=== PATIENT | female | born 1935 | race Caucasian/White ===

== ENCOUNTER 2023-11-17 14:16 | Inpatient (IN) | payer MEDICARE, OTHER ==
[~2023-11-17] VITALS: Ht 154.9 cm; Wt 68.5 kg
[2023-11-17] MEDS ORDERED: IV NORMAL SALINE 500 ML BAG IV ONE (14:30)
[2023-11-17] MEDS ORDERED: ELIQUIS (14:42)
[2023-11-17] MEDS ORDERED: TOPROL (14:42)
[2023-11-17] MEDS ORDERED: AMIODARONE (14:42)
[2023-11-17] MEDS ORDERED: PANTOPRAZOLE (14:42)
[2023-11-17] MEDS ORDERED: FUROSEMIDE (14:42)
[2023-11-17] MEDS ORDERED: ISOSORBIDE (14:42)
[2023-11-17] MEDS ORDERED: ATORVASTATIN (14:42)
[2023-11-17] MEDS ORDERED: FUROSEMIDE 40 MG/4 ML VIAL ONE (14:59)
[2023-11-17] MEDS ORDERED: FUROSEMIDE 40 MG/4 ML VIAL IV ONE (15:00)
[2023-11-17 15:44] LABS: BASOPHILS # (AUTO) 0.1 K/UL (0.0-0.2); BASOPHILS % (AUTO) 0.9 % (0.0-2.0); EOSINOPHILS % (AUTO) 0.6 % (0.0-7.0); HEMATOCRIT 35.4 % (31.2-41.9); HEMOGLOBIN 11.2 g/dL (10.9-14.3); LYMPHOCYTES # (AUTO) 0.6 K/uL (0.8-4.8); LYMPHOCYTES % (AUTO) 8.7 % (20.5-51.5); MEAN CORPUSCULAR HEMOGLOBIN 24.9 uug (24.7-32.8); MEAN CORPUSCULAR HGB CONC 32 g/dL (32.3-35.6); MEAN CORPUSCULAR VOLUME 78.5 fL (75.5-95.3); MONOCYTES # (AUTO) 0.7 K/uL (0.1-1.30); MONOCYTES % (AUTO) 10.3 % (0.0-11.0); NEUTROPHILS # (AUTO) 5.5 K/uL (1.8-8.9); NEUTROPHILS % (AUTO) 79.5 % (38.5-71.5); PLATELET COUNT (AUTO) 231 K/uL (179-408); RED BLOOD CELL COUNT(AUTO) 4.51 MIL/uL (3.63-4.92); RED CELL DISTRIBUTION WIDTH 19.8 % (12.3-17.7)
[2023-11-17 15:46] LABS: CALCIUM 8.2 mg/dL (8.5-10.1); CARBON DIOXIDE 33 mmol/L (21-32); CHLORIDE 99 mmol/L (98-107); CREATININE 0.8 mg/dL (0.6-1.3); GLUCOSE 131 mg/dL (74-106); POTASSIUM 3.3 mmol/L (3.5-5.1); SODIUM SERUM 139 mmol/L (136-145); UREA NITROGEN, BLOOD 14 mg/dL (7-18)
[2023-11-17 15:48] LABS: DIFFERENTIAL COMMENT 1
[2023-11-17] MEDS ORDERED: POTASSIUM BICARBONATE/CIT AC 25 MEQ TABLET.EFF ONE (15:55)
[2023-11-17 15:59] LABS: ALANINE AMINOTRANSFERASE 69 U/L (14-59); ALBUMIN 3.2 g/dL (3.4-5.0); ALKALINE PHOSPHATASE 77 U/L (50-136); ASPARTATE AMINOTRANSFERASE 38 U/L (15-37); BILIRUBIN,DIRECT 0.3 mg/dL (0.0-0.2); BILIRUBIN,TOTAL 0.8 mg/dL (0.2-1.0); NT-PRO BNP 3061 pg/mL (0-125); TOTAL PROTEIN, SERUM 6.7 g/dL (6.4-8.2)
[2023-11-17] MEDS ORDERED: POTASSIUM BICARBONATE/CIT AC 25 MEQ TABLET.EFF PO ONE (16:00)
[2023-11-17 20:00] VITALS: BP 122/64; TEMP 97.4; O2SAT 95
[2023-11-17 20:55] VITALS: BP 122/64; TEMP 97.4; O2SAT 95
[2023-11-17] MEDS ORDERED: MAGNESIUM HYDROXIDE 30 ML LIQUID UDC PO PRN (22:00)
[2023-11-17] MEDS ORDERED: ACETAMINOPHEN 325 MG TABLET PO PRN (22:00)
[2023-11-17] MEDS ORDERED: ONDANSETRON 4 MG/2 ML VIAL IV PRN (22:00)
[2023-11-17] MEDS ORDERED: REMEDY ESSENTIAL ZINC PASTE 113 GM TP PRN (22:00)
[2023-11-18] VITALS: BP 105/61; TEMP 97.7; O2SAT 96
[2023-11-18 04:00] VITALS: BP 108/60; TEMP 97.9; O2SAT 95
[2023-11-18 07:34] LABS: BASOPHILS % (AUTO) 0.4 % (0.0-2.0); EOSINOPHILS # (AUTO) 0.1 K/uL (0.0-0.7); EOSINOPHILS % (AUTO) 0.7 % (0.0-7.0); HEMATOCRIT 34.5 % (31.2-41.9); HEMOGLOBIN 11.3 g/dL (10.9-14.3); LYMPHOCYTES # (AUTO) 0.5 K/uL (0.8-4.8); LYMPHOCYTES % (AUTO) 5.6 % (20.5-51.5); MEAN CORPUSCULAR HEMOGLOBIN 25.4 uug (24.7-32.8); MEAN CORPUSCULAR HGB CONC 33 g/dL (32.3-35.6); MEAN CORPUSCULAR VOLUME 77.9 fL (75.5-95.3); MONOCYTES # (AUTO) 1.1 K/uL (0.1-1.30); MONOCYTES % (AUTO) 11.7 % (0.0-11.0); NEUTROPHILS # (AUTO) 7.5 K/uL (1.8-8.9); NEUTROPHILS % (AUTO) 81.6 % (38.5-71.5); PLATELET COUNT (AUTO) 272 K/uL (179-408); RED BLOOD CELL COUNT(AUTO) 4.43 MIL/uL (3.63-4.92); RED CELL DISTRIBUTION WIDTH 20.2 % (12.3-17.7); WHITE BLOOD COUNT (AUTO) 9.2 K/uL (3.8-11.8)
[2023-11-18 07:43] LABS: DIFFERENTIAL COMMENT 1
[2023-11-18 07:46] LABS: CALCIUM 8.8 mg/dL (8.5-10.1); CARBON DIOXIDE 36 mmol/L (21-32); CHLORIDE 101 mmol/L (98-107); CREATININE 0.6 mg/dL (0.6-1.3); GLUCOSE 91 mg/dL (74-106); MAGNESIUM 2.2 mg/dL (1.8-2.4); PHOSPHOROUS 4.9 mg/dL (2.5-4.9); POTASSIUM 3.9 mmol/L (3.5-5.1); SODIUM SERUM 140 mmol/L (136-145); UREA NITROGEN, BLOOD 14 mg/dL (7-18)
[2023-11-18] MEDS: FUROSEMIDE 40 MG/4 ML VIAL IV SCH ×2 (08:47→20:34)
[2023-11-18 10:27] VITALS: BP 117/67; TEMP 98.1; O2SAT 94
[2023-11-18 11:35] VITALS: BP 118/63; TEMP 97.8; O2SAT 97
[2023-11-18] MEDS ORDERED: MONT10TA33 PO (11:38)
[2023-11-18] MEDS ORDERED: FLUT1BLS6 IH (11:38)
[2023-11-18] MEDS ORDERED: METO25TA6 PO (11:38)
[2023-11-18] MEDS ORDERED: PANT40TA49 PO (11:38)
[2023-11-18] MEDS ORDERED: ISOS60TA72 PO (11:38)
[2023-11-18] MEDS ORDERED: LATA2.5D15 EACHEYE (11:38)
[2023-11-18] MEDS ORDERED: DAPA10TA PO (11:38)
[2023-11-18] MEDS ORDERED: ERGO50CA PO (11:38)
[2023-11-18] MEDS ORDERED: ATOR40TA PO (11:38)
[2023-11-18] MEDS ORDERED: FURO40TA5 PO (11:38)
[2023-11-18] MEDS ORDERED: AMIO200T5 PO (11:38)
[2023-11-18] MEDS ORDERED: BRIM5DRO2 EACHEYE (11:38)
[2023-11-18] MEDS ORDERED: APIX5TAB PO (11:38)
[2023-11-18] MEDS ORDERED: ESCI-9 PO (11:38)
[2023-11-18] MEDS ORDERED: ESCI20TA44 PO (11:40)
[2023-11-18 16:34] VITALS: BP 131/69; TEMP 98.4; O2SAT 98
[2023-11-19] MEDS: FUROSEMIDE 40 MG/4 ML VIAL IV SCH ×2 (08:58→21:13)
[2023-11-19 11:44] VITALS: BP 105/59; TEMP 98.3; O2SAT 94
[2023-11-19 16:00] VITALS: BP 110/66; TEMP 98.7; O2SAT 92
[2023-11-19 20:00] VITALS: BP 117/73; TEMP 99.1; O2SAT 91
[2023-11-20] VITALS: BP 138/69; TEMP 99
[2023-11-20 04:00] VITALS: BP 124/70; TEMP 98.2
[2023-11-20 07:13] LABS: CALCIUM 8.8 mg/dL (8.5-10.1); CARBON DIOXIDE 29 mmol/L (21-32); CHLORIDE 96 mmol/L (98-107); CREATININE 0.5 mg/dL (0.6-1.3); GLUCOSE 84 mg/dL (74-106); POTASSIUM 3.6 mmol/L (3.5-5.1); SODIUM SERUM 133 mmol/L (136-145); UREA NITROGEN, BLOOD 16 mg/dL (7-18)
[2023-11-20 08:26] LABS: BASOPHILS % (AUTO) 0.4 % (0.0-2.0); DIFFERENTIAL COMMENT 0; EOSINOPHILS % (AUTO) 0.3 % (0.0-7.0); HEMOGLOBIN 12.8 g/dL (10.9-14.3); LYMPHOCYTES # (AUTO) 0.4 K/uL (0.8-4.8); LYMPHOCYTES % (AUTO) 3.7 % (20.5-51.5); MEAN CORPUSCULAR HGB CONC 32 g/dL (32.3-35.6); MEAN CORPUSCULAR VOLUME 78.2 fL (75.5-95.3); MONOCYTES # (AUTO) 1.4 K/uL (0.1-1.30); MONOCYTES % (AUTO) 11.5 % (0.0-11.0); NEUTROPHILS % (AUTO) 84.1 % (38.5-71.5); PLATELET COUNT (AUTO) 267 K/uL (179-408); RED BLOOD CELL COUNT(AUTO) 5.12 MIL/uL (3.63-4.92); RED CELL DISTRIBUTION WIDTH 20.2 % (12.3-17.7)
[2023-11-20] MEDS: FUROSEMIDE 40 MG/4 ML VIAL IV SCH ×2 (09:14→22:16)
[2023-11-20 11:24] VITALS: BP 132/81; TEMP 98; O2SAT 93
[2023-11-20 15:23] VITALS: BP 135/68; TEMP 98.2; O2SAT 91
[2023-11-20] MEDS ORDERED: AMIODARONE HCL IV 150 MG in IV DEXTROSE 5% 100 ML IV ONE (21:45)
[2023-11-20] MEDS ORDERED: AMIODARONE HCL 150 MG/3 ML VIAL IV ONE (22:34)
[2023-11-20] MEDS: AMIODARONE HCL IV 450 MG in IV DEXTROSE 5% 250 ML IV PRN (23:42)
[2023-11-21 00:25] VITALS: BP 112/72; TEMP 98.6; O2SAT 94
[2023-11-21 04:10] VITALS: BP 130/78; TEMP 98.4; O2SAT 92
[2023-11-21] MEDS ORDERED: AMIODARONE HCL 150 MG/3 ML VIAL IV ONE (04:58)
[2023-11-21] MEDS: AMIODARONE HCL IV 450 MG in IV DEXTROSE 5% 250 ML IV PRN (05:49)
[2023-11-21 07:03] LABS: BASOPHILS % (AUTO) 0.3 % (0.0-2.0); EOSINOPHILS % (AUTO) 0.1 % (0.0-7.0); HEMATOCRIT 41.7 % (31.2-41.9); HEMOGLOBIN 13.4 g/dL (10.9-14.3); LYMPHOCYTES # (AUTO) 0.6 K/uL (0.8-4.8); LYMPHOCYTES % (AUTO) 4.8 % (20.5-51.5); MEAN CORPUSCULAR HEMOGLOBIN 24.9 uug (24.7-32.8); MEAN CORPUSCULAR HGB CONC 32 g/dL (32.3-35.6); MEAN CORPUSCULAR VOLUME 77.5 fL (75.5-95.3); MONOCYTES # (AUTO) 1.6 K/uL (0.1-1.30); MONOCYTES % (AUTO) 13.3 % (0.0-11.0); NEUTROPHILS # (AUTO) 10.1 K/uL (1.8-8.9); NEUTROPHILS % (AUTO) 81.5 % (38.5-71.5); PLATELET COUNT (AUTO) 268 K/uL (179-408); RED BLOOD CELL COUNT(AUTO) 5.37 MIL/uL (3.63-4.92); RED CELL DISTRIBUTION WIDTH 20.4 % (12.3-17.7); WHITE BLOOD COUNT (AUTO) 12.3 K/uL (3.8-11.8)
[2023-11-21 07:21] LABS: DIFFERENTIAL COMMENT 1
[2023-11-21 07:24] LABS: CALCIUM 8.6 mg/dL (8.5-10.1); CARBON DIOXIDE 38 mmol/L (21-32); CHLORIDE 93 mmol/L (98-107); CREATININE 0.5 mg/dL (0.6-1.3); GLUCOSE 105 mg/dL (74-106); SODIUM SERUM 135 mmol/L (136-145); UREA NITROGEN, BLOOD 14 mg/dL (7-18)
[2023-11-21] MEDS ORDERED: METOPROLOL TARTRATE 25 MG TABLET PO PRN (07:30)
[2023-11-21 07:53] VITALS: BP 136/92; TEMP 98.4; O2SAT 96
[2023-11-21 07:54] LABS: POTASSIUM 2.8 mmol/L (3.5-5.1)
[2023-11-21] MEDS ORDERED: POTASSIUM CHLORIDE 20 MEQ POWDER PACKET GT ONE (08:30)
[2023-11-21] MEDS: POTASSIUM CHLORIDE 50 ML IV SCH ×4 (08:52→11:50)
[2023-11-21] MEDS: FUROSEMIDE 40 MG/4 ML VIAL IV SCH (08:52)
[2023-11-21] MEDS: ESCITALOPRAM OXALATE 10 MG TABLET PO SCH (08:53)
[2023-11-21] MEDS: METOPROLOL TARTRATE 25 MG TABLET PO SCH ×2 (08:53→21:17)
[2023-11-21] MEDS: MONTELUKAST SODIUM 10 MG TABLET PO SCH (08:53)
[2023-11-21] MEDS: APIXABAN 5 MG TABLET PO SCH ×2 (08:56→16:50)
[2023-11-21] MEDS: PANTOPRAZOLE SODIUM 40 MG TABLET.DR PO SCH (08:58)
[2023-11-21] MEDS ORDERED: ISOSORBIDE MONONITRATE 60 MG TAB.SR.24H PO SCH (09:00)
[2023-11-21] MEDS ORDERED: Medication Not On Formulary EA (Escitalopram Oxalate 1 TAB) PO SCH (09:00)
[2023-11-21] MEDS ORDERED: AMIODARONE HCL 200 MG TABLET PO SCH (09:00)
[2023-11-21 11:33] VITALS: BP 121/69; TEMP 98.3; O2SAT 96
[2023-11-21 15:55] VITALS: BP 141/75; TEMP 99; O2SAT 92
[2023-11-21] MEDS ORDERED: LORAZEPAM 2 MG/1 ML VIAL IV PRN (16:30)
[2023-11-21] MEDS: LORAZEPAM 0.5 MG TABLET PO PRN ×3 (16:50→22:55)
[2023-11-21 19:00] VITALS: BP 122/77; TEMP 98.3; O2SAT 95
[2023-11-22 05:44] VITALS: BP 143/86; TEMP 98.8; O2SAT 90
[2023-11-22] MEDS: PANTOPRAZOLE SODIUM 40 MG TABLET.DR PO SCH (06:23)
[2023-11-22] MEDS: APIXABAN 5 MG TABLET PO SCH ×2 (08:57→17:59)
[2023-11-22] MEDS: ESCITALOPRAM OXALATE 10 MG TABLET PO SCH (09:00)
[2023-11-22] MEDS: MONTELUKAST SODIUM 10 MG TABLET PO SCH (09:00)
[2023-11-22] MEDS: METOPROLOL TARTRATE 25 MG TABLET PO SCH ×2 (09:03→21:01)
[2023-11-22 11:59] VITALS: BP 125/70; TEMP 98.3; O2SAT 94
[2023-11-22 15:06] VITALS: BP 132/79; TEMP 98.2; O2SAT 92
[2023-11-22] MEDS: PROTEIN SUPPLEMENT (PROSTAT) 30 ML LIQUID PO SCH (17:00)
[2023-11-22 17:30] LABS: BASOPHILS % (AUTO) 0.3 % (0.0-2.0); DIFFERENTIAL COMMENT 0; EOSINOPHILS # (AUTO) 0.1 K/uL (0.0-0.7); EOSINOPHILS % (AUTO) 0.5 % (0.0-7.0); HEMATOCRIT 41.5 % (31.2-41.9); HEMOGLOBIN 13.3 g/dL (10.9-14.3); LYMPHOCYTES # (AUTO) 0.5 K/uL (0.8-4.8); MEAN CORPUSCULAR HEMOGLOBIN 25.1 uug (24.7-32.8); MEAN CORPUSCULAR HGB CONC 32 g/dL (32.3-35.6); MEAN CORPUSCULAR VOLUME 78.3 fL (75.5-95.3); MONOCYTES # (AUTO) 1.2 K/uL (0.1-1.30); MONOCYTES % (AUTO) 11.2 % (0.0-11.0); NEUTROPHILS # (AUTO) 8.8 K/uL (1.8-8.9); PLATELET COUNT (AUTO) 258 K/uL (179-408); RED CELL DISTRIBUTION WIDTH 19.5 % (12.3-17.7); WHITE BLOOD COUNT (AUTO) 10.6 K/uL (3.8-11.8)
[2023-11-22 17:32] LABS: CALCIUM 8.9 mg/dL (8.5-10.1); CARBON DIOXIDE 32 mmol/L (21-32); CHLORIDE 95 mmol/L (98-107); CREATININE 0.5 mg/dL (0.6-1.3); GLUCOSE 94 mg/dL (74-106); POTASSIUM 3.5 mmol/L (3.5-5.1); SODIUM SERUM 133 mmol/L (136-145); UREA NITROGEN, BLOOD 19 mg/dL (7-18)
[2023-11-22 17:38] LABS: ALANINE AMINOTRANSFERASE 37 U/L (14-59); ALBUMIN 2.5 g/dL (3.4-5.0); ALKALINE PHOSPHATASE 70 U/L (50-136); ASPARTATE AMINOTRANSFERASE 30 U/L (15-37); BILIRUBIN,TOTAL 1.7 mg/dL (0.2-1.0); MAGNESIUM 2.1 mg/dL (1.8-2.4); PHOSPHOROUS 3.4 mg/dL (2.5-4.9)
[2023-11-22 17:51] LABS: ABG BASE EXCESS 10.2 mmol/L (-2.0-2.0); ABG PCO2 52.2 mmHg (35.0-48.0); ABG PH 7.456 (7.340-7.440); ABG PO2 66.4 mmHg (75.0-100.0); ABG SITE RIGHT RADIAL; ABG TOTAL HEMOGLOBIN 14.1 G/dL (12.0-16.0); AaDO2 93.7 mmHg; COHb 1.8 % (0.0-3.9); MetHb 0.3 % (0.0-1.5); O2Hb 90.9 % (94.0-97.0)
[2023-11-22] MEDS ORDERED: FUROSEMIDE 40 MG/4 ML VIAL IV ONE (19:00)
[2023-11-22 19:22] LABS: *BLOOD, URINE 1+ (NEGATIVE); *CLARITY,URINE CLEAR (CLEAR); *COLOR,URINE YELLOW (YELLOW); *KETONES,URINE 1+ (NEGATIVE); *PROTEIN,URINE 2+ (NEGATIVE); LEUKOCYTE ESTERASE ,URINE NEGATIVE (NEGATIVE); NITRITE, URINE NEGATIVE (NEGATIVE); PH,URINE 5.5 (5.0-8.0); UGLUCOSE TRACE (NEGATIVE)
[2023-11-22 19:23] LABS: *BILIRUBIN,URIN 1+ (NEGATIVE); WBC,URINE 0-3 /HPF (0-3)
[2023-11-22 20:00] VITALS: BP 141/76; TEMP 98.1; O2SAT 100
[2023-11-23 04:00] VITALS: BP 114/73; TEMP 97.4; O2SAT 93
[2023-11-23] MEDS: PANTOPRAZOLE SODIUM 40 MG TABLET.DR PO SCH (06:33)
[2023-11-23] MEDS: MONTELUKAST SODIUM 10 MG TABLET PO SCH (09:20)
[2023-11-23] MEDS: METOPROLOL TARTRATE 25 MG TABLET PO SCH ×2 (09:20→20:47)
[2023-11-23] MEDS: ESCITALOPRAM OXALATE 10 MG TABLET PO SCH (09:20)
[2023-11-23] MEDS: NEPRO (VANILLA) 237 ML CAN PO SCH (09:23)
[2023-11-23] MEDS: APIXABAN 5 MG TABLET PO SCH ×2 (09:23→16:43)
[2023-11-23] MEDS: PROTEIN SUPPLEMENT (PROSTAT) 30 ML LIQUID PO SCH ×2 (09:24→16:48)
[2023-11-23 09:30] VITALS: BP 101/61; TEMP 98.8; O2SAT 96
[2023-11-23] MEDS ORDERED: FUROSEMIDE 40 MG TABLET PO SCH (09:30)
[2023-11-23 11:13] VITALS: BP 98/71; TEMP 99.2; O2SAT 94
[2023-11-23] MEDS ORDERED: MULT-1045 PO (13:44)
[2023-11-23] MEDS ORDERED: ALBU2.5V38 NEB (13:44)
[2023-11-23] MEDS ORDERED: ACET325T53 PO (13:44)
[2023-11-23] MEDS ORDERED: MAGN400O6 PO (13:44)
[2023-11-23] MEDS ORDERED: Nepro PO (13:44)
[2023-11-23] MEDS ORDERED: DOCU-141 PO (13:44)
[2023-11-23] MEDS ORDERED: PROT30LI PO (13:44)
[2023-11-23] MEDS ORDERED: LACTULOSE 20 G/30 ML LIQUID UDC PO PRN (13:45)
[2023-11-23 15:35] VITALS: BP 97/52; TEMP 99.2; O2SAT 92
[2023-11-23 15:38] VITALS: O2SAT 92
[2023-11-23 20:00] VITALS: BP 107/60; TEMP 97.8; O2SAT 97
[2023-11-24 04:00] VITALS: BP 104/63; TEMP 97.9; O2SAT 98
[2023-11-24 05:06] VITALS: O2SAT 92
[2023-11-24] MEDS: PANTOPRAZOLE SODIUM 40 MG TABLET.DR PO SCH (06:09)
[2023-11-24 07:17] LABS: BASOPHILS % (AUTO) 0.4 % (0.0-2.0); DIFFERENTIAL COMMENT 0; EOSINOPHILS # (AUTO) 0.1 K/uL (0.0-0.7); EOSINOPHILS % (AUTO) 0.9 % (0.0-7.0); HEMATOCRIT 40.3 % (31.2-41.9); HEMOGLOBIN 12.9 g/dL (10.9-14.3); LYMPHOCYTES # (AUTO) 0.6 K/uL (0.8-4.8); LYMPHOCYTES % (AUTO) 5.7 % (20.5-51.5); MEAN CORPUSCULAR HEMOGLOBIN 24.6 uug (24.7-32.8); MEAN CORPUSCULAR HGB CONC 32 g/dL (32.3-35.6); MONOCYTES # (AUTO) 1.5 K/uL (0.1-1.30); MONOCYTES % (AUTO) 13.5 % (0.0-11.0); NEUTROPHILS # (AUTO) 8.8 K/uL (1.8-8.9); NEUTROPHILS % (AUTO) 79.5 % (38.5-71.5); PLATELET COUNT (AUTO) 295 K/uL (179-408); RED BLOOD CELL COUNT(AUTO) 5.23 MIL/uL (3.63-4.92); RED CELL DISTRIBUTION WIDTH 20.2 % (12.3-17.7); WHITE BLOOD COUNT (AUTO) 11.1 K/uL (3.8-11.8)
[2023-11-24 07:32] LABS: ALANINE AMINOTRANSFERASE 48 U/L (14-59); ALBUMIN 2.3 g/dL (3.4-5.0); ALKALINE PHOSPHATASE 73 U/L (50-136); ASPARTATE AMINOTRANSFERASE 38 U/L (15-37); BILIRUBIN,TOTAL 1.5 mg/dL (0.2-1.0); CALCIUM 8.4 mg/dL (8.5-10.1); CARBON DIOXIDE 33 mmol/L (21-32); CHLORIDE 94 mmol/L (98-107); CREATININE 0.7 mg/dL (0.6-1.3); GLUCOSE 91 mg/dL (74-106); MAGNESIUM 1.9 mg/dL (1.8-2.4); PHOSPHOROUS 3.4 mg/dL (2.5-4.9); POTASSIUM 3.3 mmol/L (3.5-5.1); SODIUM SERUM 134 mmol/L (136-145); TOTAL PROTEIN, SERUM 6.6 g/dL (6.4-8.2); UREA NITROGEN, BLOOD 37 mg/dL (7-18)
[2023-11-24 07:57] VITALS: BP 104/63; TEMP 98.3; O2SAT 95
[2023-11-24] MEDS ORDERED: IV NORMAL SALINE 250 ML IV ONE (08:24)
[2023-11-24] MEDS ORDERED: IOHEXOL 300MG/ML 100 ML INFUS..BTL ONE (08:24)
[2023-11-24] MEDS ORDERED: SWABABLE VALVE TRANSFER SET EA MC ONE (08:24)
[2023-11-24] MEDS ORDERED: POTASSIUM CHLORIDE 20 MEQ POWDER PACKET GT ONE (08:30)
[2023-11-24] MEDS: APIXABAN 5 MG TABLET PO SCH (08:46)
[2023-11-24] MEDS: MONTELUKAST SODIUM 10 MG TABLET PO SCH (08:47)
[2023-11-24] MEDS: ESCITALOPRAM OXALATE 10 MG TABLET PO SCH (08:47)
[2023-11-24] MEDS: METOPROLOL TARTRATE 25 MG TABLET PO SCH (08:47)
[2023-11-24] MEDS: PROTEIN SUPPLEMENT (PROSTAT) 30 ML LIQUID PO SCH (08:48)
[2023-11-24] MEDS: NEPRO (VANILLA) 237 ML CAN PO SCH (08:48)
[2023-11-24] MEDS ORDERED: FUROSEMIDE 40 MG TABLET PO SCH (09:00)
[2023-11-24] MEDS ORDERED: MIDODRINE HCL 2.5 MG TABLET PO PRN (11:45)
[2023-11-24 12:00] VITALS: BP 100/57; TEMP 97.5; O2SAT 94
[2023-11-24 15:56] VITALS: O2SAT 95
[2023-11-24 16:00] VITALS: BP 116/66; TEMP 98.1; O2SAT 94
== END 2023-11-24 16:50 | DRG 291 ==
LOC: ER 14:20 → TRANSITION 18:49 → TELE3 20:47 → TELE-TD3 11-20 21:50 → TELE3 11-21 10:20 → MEDSURG3 11-22 08:50
PROVIDERS: ADMIT Internal Medicine; ATTEND Internal Medicine
DX: I50.33 Acute on chronic diastolic (congestive) heart failure (principal); G93.41 Metabolic encephalopathy; E44.0 Moderate protein-calorie malnutrition; D68.59 Other primary thrombophilia; R17 Unspecified jaundice; I31.39 Other pericardial effusion (noninflammatory); I42.5 Other restrictive cardiomyopathy; I48.0 Paroxysmal atrial fibrillation; R13.10 Dysphagia, unspecified; I27.20 Pulmonary hypertension, unspecified; E66.9 Obesity, unspecified; E87.6 Hypokalemia; I95.9 Hypotension, unspecified; F03.90 Unspecified dementia, unspecified severity, without behavioral disturbance, psychotic disturbance, mood disturbance, and anxiety; I08.2 Rheumatic disorders of both aortic and tricuspid valves; K21.9 Gastro-esophageal reflux disease without esophagitis; Z78.1 Physical restraint status; K56.41 Fecal impaction; J44.9 Chronic obstructive pulmonary disease, unspecified; E78.5 Hyperlipidemia, unspecified; M81.0 Age-related osteoporosis without current pathological fracture; M15.9 Polyosteoarthritis, unspecified; Z68.27 Body mass index [BMI] 27.0-27.9, adult; Z74.09 Other reduced mobility; Z79.01 Long term (current) use of anticoagulants; Z79.899 Other long term (current) drug therapy; R13.13 Dysphagia, pharyngeal phase
CPT/HCPCS: 36415; 36600; 70450; 71045; 71250; 83690; 83735; 84100; 84132; 84484; 85025; 87040; 93005; 93307; A4663; C1758; G0378; J0282; J1940; J3480; J7040; J7050; Q9967